=== PATIENT | male | born 1975 | race Asian ===

== ENCOUNTER 2020-11-06 10:09 | Emergency (ER) | payer OTHER ==
[2020-11-06 10:37] VITALS: BP 110/76; PULSE 77; TEMP 97.9; BMI 29.8
== END 2020-11-06 11:54 | disposition home or self-care (01) ==
LOC: JERFT 10:09
DX: S20.221A Contusion of right back wall of thorax, initial encounter (principal); S50.01XA Contusion of right elbow, initial encounter; W01.0XXA Fall on same level from slipping, tripping and stumbling without subsequent striking against object, initial encounter
CPT/HCPCS: 99281-25

== ENCOUNTER 2020-11-15 14:30 | Emergency (ER) | payer OTHER ==
[2020-11-15 14:40] VITALS: BP 114/72; PULSE 75; TEMP 97; BMI 29.5
[2020-11-15] MEDS ORDERED: KETOROLAC TROMETHAMINE 30 MG/1 ML VIAL IM ONE (15:26)
[2020-11-15] MEDS ORDERED: KETOROLAC TROMETHAMINE 30 MG/1 ML VIAL ONE (15:28)
== END 2020-11-15 15:40 | disposition home or self-care (01) ==
LOC: JERFT 14:30
PROC: 3E023GC Introduction of Other Therapeutic Substance into Muscle, Percutaneous Approach (ICD-10-PCS; principal; 2020-11-15)
DX: M54.89 Other dorsalgia (principal)
CPT/HCPCS: 99284-25

== ENCOUNTER 2022-06-30 10:27 | Emergency (ER) | payer OTHER ==
[2022-06-30 10:32] VITALS: BP 129/88; PULSE 66; RESP 18; TEMP 98; BMI 26.3
== END 2022-06-30 12:26 | disposition home or self-care (01) ==
LOC: JERFT 10:27
DX: H10.32 Unspecified acute conjunctivitis, left eye (principal); H05.012 Cellulitis of left orbit
CPT/HCPCS: 99283-25